=== PATIENT | male | born 2000 | race African-American/Black ===

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

== ENCOUNTER → 2019-10-16 | Emergency (ER) | payer MEDICAID ==
[~2019-10-16] VITALS: Ht 175.3 cm; Wt 74.8 kg
[2019-10-16 00:57] VITALS: BP 131/69
== END | disposition home or self-care (01) ==
LOC: ER 00:34
DX: R07.89 Other chest pain (principal); Z56.3 Stressful work schedule
CPT/HCPCS: 71045

== ENCOUNTER 2023-11-11 20:25 | Emergency (ER) | payer MEDICAID ==
[~2023-11-11] VITALS: Ht 175.3 cm; Wt 64.8 kg
[~2023-11-11 20:25] MED LIST: CEPH250C PO; CLIN1CAP70 PO
[2023-11-11] MEDS ORDERED: IBUP1TAB5 PO (23:10)
[2023-11-11] MEDS: HYDROcodone-ACET 10/325MG TAB PO ONE (23:47)
[2023-11-12 00:20] VITALS: BP 122/81; PULSE 61; RESP 16; TEMP 99.1; O2SAT 95
== END 2023-11-12 00:28 | disposition home or self-care (01) ==
LOC: ER 20:25
DX: S62.306A Unspecified fracture of fifth metacarpal bone, right hand, initial encounter for closed fracture (principal); W18.09XA Striking against other object with subsequent fall, initial encounter; Y93.89 Activity, other specified; Y92.89 Other specified places as the place of occurrence of the external cause; Y99.8 Other external cause status
CPT/HCPCS: 29125; 73090; 73110; 73120